=== PATIENT | male | born 1995 | race Caucasian/White ===

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

== ENCOUNTER 2017-01-16 11:08 | Emergency (ER) | payer OTHER ==
[2017-01-16 11:37] VITALS: BP 109/66
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
[2017-01-16] MEDS ORDERED: Silver Sulfadiazine 1% Crm 50 GM Tube TOP STA (11:59)
[2017-01-16] MEDS ORDERED: Silver Sulfadiazine 1% Crm 50 GM Tube TOP SCH (21:00)
== END 2017-01-16 12:39 | disposition home or self-care (01) ==
LOC: MW.ED 11:08
DX: T52.91XA Toxic effect of unspecified organic solvent, accidental (unintentional), initial encounter (principal); T25.622A Corrosion of second degree of left foot, initial encounter; F17.210 Nicotine dependence, cigarettes, uncomplicated
CPT/HCPCS: 16020; 99283; A9270

== ENCOUNTER 2017-02-27 22:20 | Emergency (ER) | payer OTHER ==
--- NOTE | 2017-02-27 23:28 | EDM.PDOC ---
ED HPI GENERAL MEDICAL PROBLEM - General Chief Complaint: Upper Extremity Injury/Pain Stated Complaint: PT HURT LT SHOULDER Time Seen by Provider: 02/27/17 23:18 - History of Present Illness INITIAL COMMENTS - FREE TEXT/NARRATIVE: HISTORY AND PHYSICAL: History of present illness: The patient is a 21-year-old male who presents with complaints of pain at his left clavicle that started this morning when he woke up. Patient says that he was at the gym yesterday on the surfing simulator and fell landing onto his right upper head and shoulder and initially did not pass out or blackout and had no complaints of any pain. He felt fine when he went to sleep and this morning he woke up with discomfort at his proximal left clavicle without any distal left upper extremity pain. Has no chest wall pain no headache neck or back pain and says that there is more pain with movement of the left upper extremity. Patient is not taking anything for the pain and is right-hand dominant. Review of systems: As per history of present illness and below otherwise all systems reviewed and negative. Past medical history: As per history of present illness and as reviewed below otherwise noncontributory. Surgical history: As per history of present illness and as reviewed below otherwise noncontributory. Social history: No reported history of drug or alcohol abuse. Family history: As per history of present illness and as reviewed below otherwise noncontributory. Physical exam: Gen.: Well-developed well-nourished man who is nontoxic and vital signs reviewed by me. HEENT: Atraumatic, normocephalic, negative for conjunctival pallor or scleral icterus, mucous membranes moist, throat clear, neck supple, nontender, trachea midline. There are no midline step-offs tenderness defects of the cervical spine Lungs: Clear to auscultation, breath sounds equal bilaterally, chest nontender. There is no gross rib tenderness on the left Heart: S1S2, regular rate and rhythm no overt murmurs Abdomen: Soft, nondistended, nontender. NABS Pelvis: Deferred Genitourinary: Deferred. Rectal: Deferred. Extremities: Atraumatic with mild tenderness on palpation of the medial clavicle just distal to the sternal margin without any ecchymosis crepitus or erythema and there is some soft tissue swelling at this location as well. The remainder of the clavicle is nontender as is the AC joint. There is no proximal humerus or distal elbow forearm wrist or hand pain on the left. There is no gross tenderness of the chest wall near the left clavicle no defects crepitus or deformities. All other extremities have full range of motion and in fact the left upper extremity is able to range of motion but the patient complains of discomfort. The legs are, negative for cords or calf pain. Neurovascular unremarkable. Neuro: Awake, alert, oriented. Cranial nerves II through XII unremarkable. Cerebellum unremarkable. Motor and sensory unremarkable throughout. Exam nonfocal. Back: There are no midline step-offs in his defects of the thoracic or lumbar spine and no posterior shoulder scapular tenderness is appreciated Diagnostics: 1 view chest x-ray, left clavicle x-ray Therapeutics: The patient refuses medications, sling Impression: Left clavicle injury status post blunt trauma Definitive disposition and diagnosis as appropriate pending reevaluation and review of above. - Related Data Allergies Allergy/AdvReac Type Severity Reaction Status Date / Time No Known Allergies Allergy Verified 02/27/17 23:04 Home Meds: Home Meds . [No Known Home Meds] 02/27/17 [History] Past Medical History - Past Health History Medical/Surgical History: Denies Medical/Surgical History - Infectious Disease History Infectious Disease History: Reports: None Social & Family History - Family History Family Medical History: Noncontributory - Tobacco Use Smoking Status *Q: Never Smoker Years of Tobacco use: 1 Packs/Tins Daily: 1 Second Hand Smoke Exposure: No - Caffeine Use Caffeine Use: Reports: Coffee, Energy Drinks, Soda - Alcohol Use Days Per Week of Alcohol Use: 0 - Recreational Drug Use Recreational Drug Use: No Review of Systems - Review of Systems Review Of Systems: ROS reveals no pertinent complaints other than HPI. ED EXAM, GENERAL - Physical Exam Exam: See Below (See dictation) Course - Vital Signs Last Recorded V/S: Last Vital Signs Temp 36.6 C 02/27/17 23:07 Pulse 98 02/27/17 23:07 Resp 14 02/27/17 23:07 BP 124/60 02/27/17 23:07 Pulse Ox 98 02/27/17 23:07 - Orders/Labs/Meds Orders: Active Orders 24 hr Category Date Time Status Chest 1V Frontal [CR] Stat Exams 02/27/17 23:23 Taken Clavicle Lt [CR] Stat Exams 02/27/17 23:23 Taken DME for Discharge [COMM] Stat Oth 02/28/17 00:03 Ordered Departure - Departure Time of Disposition: 00:03 Disposition: Home, Self-Care 01 Condition: Good Clinical Impression: Injury of left clavicle Qualifiers: Encounter type: initial encounter Qualified Code(s): S49.92XA - Unspecified injury of left shoulder and upper arm, initial encounter - Discharge Information Referrals: PCP,None [Primary Care Provider] - Forms: ED Department Discharge Additional Instructions: The following information is given to patients seen in the emergency department who are being discharged to home. This information is to outline your options for follow-up care. We provide all patients seen in our emergency department with a follow-up referral. The need for follow-up, as well as the timing and circumstances, are variable depending upon the specifics of your emergency department visit. If you don't have a primary care physician on staff, we will provide you with a referral. We always advise you to contact your personal physician following an emergency department visit to inform them of the circumstance of the visit and for follow-up with them and/or the need for any referrals to a consulting specialist. The emergency department will also refer you to a specialist when appropriate. This referral assures that you have the opportunity for followup care with a specialist. All of these measure are taken in an effort to provide you with optimal care, which includes your followup. Under all circumstances we always encourage you to contact your private physician who remains a resource for coordinating your care. When calling for followup care, please make the office aware that this follow-up is from your recent emergency room visit. If for any reason you are refused follow-up, please contact the [facility] emergency department at and ask to speak to the emergency department charge nurse. [facility] Specialty Care--Orthopedic clinic Professional Building [address] [place] [id number] Ice to area for pain and swelling and use [id number] Tylenol/ibuprofen for inflammation and discomfort. Wear sling as needed for comfort but also starting tomorrow try to range of motion the area slowly to help open up the muscles. Please call our ortho clinic for further care and evaluation and return to ER as needed and as discussed. - My Orders Last 24 Hours: My Active Orders 02/27/17 23:23 Chest 1V Frontal [CR] Stat Clavicle Lt [CR] Stat 02/28/17 00:03 DME for Discharge [COMM] Stat - Assessment/Plan Last 24 Hours: My Active Orders 02/27/17 23:23 Chest 1V Frontal [CR] Stat Clavicle Lt [CR] Stat 02/28/17 00:03 DME for Discharge [COMM] Stat
[2017-02-28 02:48] VITALS: BP 121/63
--- NOTE | 2017-02-28 09:17 | CR ---
EXAM DATE: 02/27/17 PATIENT'S AGE: 21 Patient: CYRUS GLORIA Facility: [place], [place] Site . Site : 1995 Study: XRay Chest [id number]/8/2018 11:43:29 PM Ordering Physician: Izzy Mcmullen Final Report: INDICATION: FELL ONTO LEFT SHOULDER YESTERDAY, PAIN. CHEST, ONE VIEW An AP radiograph of the chest was performed. Comparison: No previous studies are currently available for comparison. The lungs appear clear and no pleural effusions are identified. The cardiomediastinal silhouette and pulmonary vasculature appear normal, as do the visualized bones. IMPRESSION: No acute intrathoracic abnormality identified. SAVANNAH GAITAN MD [employer] Dictated by: Javier Gaitan MD @ 02/27/2017 23:46:01 (Electronic Signature) Report Signed by Proxy. [facility]ITAL[facility]
--- NOTE | 2017-02-28 09:18 | CR ---
EXAM DATE: 02/27/17 PATIENT'S AGE: 21 Patient: CYRUS GLORIA Facility: [place], [place] Site . Site : 1995 Study: XRay Extremity Left CLAVICLE [id number]/8/2018 11:43:57 PM Ordering Physician: Izzy Mcmullen Final Report: INDICATION: PAIN, PT FELL ONTO LEFT SHOULDER YESTERDAY LEFT CLAVICLE No fracture, dislocation, or destructive lesion of bone is seen. No significant arthritic changes or soft tissue abnormalities are identified. IMPRESSION: Negative left clavicle radiographs. SVAANNAH GAITAN MD [employer] Dictated by: Javier Gaitan MD @ 02/27/2017 23:45:31 (Electronic Signature) Report Signed by Proxy. [facility]
== END 2017-02-28 00:10 | disposition home or self-care (01) ==
LOC: MW.ED 22:20
DX: S49.92XA Unspecified injury of left shoulder and upper arm, initial encounter (principal); W19.XXXA Unspecified fall, initial encounter
CPT/HCPCS: 71045; 71045-26; 73000-26-LT; 73000-LT; 99283; 99284

== ENCOUNTER 2017-04-28 18:37 | Emergency (ER) | payer OTHER ==
[2017-04-28 18:49] VITALS: BP 129/68
--- NOTE | 2017-04-28 19:23 | EDM.PDOC ---
ED HPI GENERAL MEDICAL PROBLEM - General Chief Complaint: Neuro Symptoms/Deficits Stated Complaint: SEIZURES Time Seen by Provider: 04/28/17 19:11 - History of Present Illness INITIAL COMMENTS - FREE TEXT/NARRATIVE: HISTORY AND PHYSICAL: History of present illness: The patient is a 22-year-old male who presents for evaluation of seizures; the patient states that he has had seizures since she was 15 years of age and the usually occur about once a month right before he goes to sleep at nighttime. He states that he has never seen a neurologist or any specialist for this and he has never been on any medication. He says he has never had any testing such as an EEG for this. He presents today to the ED for evaluation because over the last 2 weeks he has been having one every single night right before he goes to sleep. He denies drug use and only drinks socially. He denies any recent trauma to his head and during these events he is usually in bed and has no trauma with it. He does not have loss of bowel or bladder and there witnessed by his girlfriend and he is here tonight because last evening his seizure lasted longer than usual and the girlfriend thought it was 20 minutes. The patient has not had any events this evening and states that he does not have any abnormal motor activity or "seizures" during the day. There is no specific trigger for it. In the past he has always had them with a similar presentation always right before sleep time. He currently denies any systemic complaints such as fever chest pain shortness of breath headache nausea or vomiting has been eating drinking normally. He does say that he gets headaches frequently but they are not associated to the headaches specifically and he does not get headaches every single day. He has never seen a doctor for evaluation of headaches either. The headaches are vague and diffuse and not in any one specific location. The patient denies any complaints of pain as a result of these "seizures" such as muscle pain extremity pain head neck or back pain. The patient states he has not been biting his tongue but he bite his inner lip several days ago and there is no pain there. Review of systems: As per history of present illness and below otherwise all systems reviewed and negative. Past medical history: As per history of present illness and as reviewed below otherwise noncontributory. Surgical history: As per history of present illness and as reviewed below otherwise noncontributory. Social history: No reported history of drug or alcohol abuse. Family history: As per history of present illness and as reviewed below otherwise noncontributory. Physical exam: General: Well-developed well-nourished male who is nontoxic and vital signs reviewed by me. HEENT: Atraumatic, normocephalic, pupils reactive, negative for conjunctival pallor or scleral icterus, mucous membranes moist, throat clear, neck supple, nontender, trachea midline. There is no cervical adenopathy or nuchal rigidity no evidence of any soft tissue injuries to the scalp or head. There is no evidence of any tongue or oral trauma seen. Lungs: Clear to auscultation, breath sounds equal bilaterally, chest nontender. Heart: S1S2, regular rate and rhythm no overt murmurs Abdomen: Soft, nondistended, nontender. NABS Pelvis: Stable nontender. Genitourinary: Deferred. Rectal: Deferred. Extremities: Atraumatic, negative for cords or calf pain. Neurovascular unremarkable. Full range of motion without any defects or deficits Neuro: Awake, alert, oriented. Cranial nerves II through XII unremarkable. Cerebellum unremarkable. Motor and sensory unremarkable throughout. Exam nonfocal. Diagnostics: CBC CMP alcohol level UA UDS CT scan of the head Therapeutics: I discussed with the patient at length that we will be limited in evaluation of seizures here and as he did not have a seizure since last evening it would even make it more challenging. I told him that we would do a basic workup and I would refer him to our neurologist for further care and evaluation he states understanding. Impression: Medical screening exam with history of seizures stable, persistent seizures without medical care plan Definitive disposition and diagnosis as appropriate pending reevaluation and review of above. - Related Data Allergies Allergy/AdvReac Type Severity Reaction Status Date / Time No Known Allergies Allergy Verified 04/28/17 18:48 Home Meds: Home Meds . [No Known Home Meds] 02/27/17 [History] Past Medical History - Past Health History Medical/Surgical History: Denies Medical/Surgical History Neurological History: Reports: Seizure - Infectious Disease History Infectious Disease History: Reports: None Other Infectious Disease History: clamydia (treated) - Past Surgical History HEENT Surgical History: Reports: Oral Surgery Social & Family History - Family History Family Medical History: Noncontributory - Tobacco Use Smoking Status *Q: Current Every Day Smoker Years of Tobacco use: 2 Packs/Tins Daily: 1 Second Hand Smoke Exposure: No - Caffeine Use Caffeine Use: Reports: Coffee, Soda - Alcohol Use Days Per Week of Alcohol Use: 0 - Recreational Drug Use Recreational Drug Use: No ED ROS GENERAL - Review of Systems Review Of Systems: ROS reveals no pertinent complaints other than HPI. ED EXAM, GENERAL - Physical Exam Exam: See Below (see dictation) Course - Vital Signs Last Recorded V/S: Last Vital Signs Temp 36.4 C 04/28/17 18:45 Pulse 82 04/28/17 18:45 Resp 18 04/28/17 18:45 BP 129/68 04/28/17 18:45 Pulse Ox 97 04/28/17 18:45 - Orders/Labs/Meds Orders: Active Orders 24 hr Category Date Time Status Head wo Cont [CT] Stat Exams 04/28/17 19:18 Taken Labs: Laboratory Tests 04/28/17 04/28/17 04/28/17 Range/Units 19:37 19:37 19:45 WBC 7.04 (4.0-11.0) K/uL RBC 4.80 (4.50-5.90) M/uL Hgb 14.5 (13.0-17.0) g/dL Hct 41.5 (38.0-50.0) % MCV 86.5 (80.0-98.0) fL MCH 30.2 (27.0-32.0) pg MCHC 34.9 (31.0-37.0) g/dL RDW Std Deviation 39.4 (28.0-62.0) fl RDW Coeff of Sunday 12 (11.0-15.0) % Plt Count 234 (150-400) K/uL MPV 9.50 (7.40-12.00) fL Neut % (Auto) 53.5 (48.0-80.0) % Lymph % (Auto) 36.6 (16.0-40.0) % Esmeralda % (Auto) 6.8 (0.0-15.0) % Eos % (Auto) 2.7 (0.0-7.0) % Baso % (Auto) 0.4 (0.0-1.5) % Neut # (Auto) 3.8 (1.4-5.7) K/uL Lymph # (Auto) 2.6 H (0.6-2.4) K/uL Esmeralda # (Auto) 0.5 (0.0-0.8) K/uL Eos # (Auto) 0.2 (0.0-0.7) K/uL Baso # (Auto) 0.0 (0.0-0.1) K/uL Nucleated RBC % 0.0 /100WBC Nucleated RBCs # 0 K/uL Sodium 143 (136-148) mmol/L Potassium 4.1 (3.5-5.1) mmol/L Chloride 108 H (98-107) mmol/L Carbon Dioxide 24.8 (21.0-32.0) mmol/L BUN 12 (7.0-18.0) mg/dL Creatinine 0.9 (0.8-1.3) mg/dL Est Cr Clr Drug Dosing 126.67 mL/min Estimated GFR (MDRD) > 60.0 ml/min Glucose 90 (74-106) mg/dL Calcium 9.3 (8.5-10.1) mg/dL Total Bilirubin 0.2 (0.2-1.0) mg/dL AST 31 (15-37) IU/L ALT 55 (14-63) IU/L Alkaline Phosphatase 68 (46-116) U/L Total Protein 7.4 (6.4-8.2) g/dL Albumin 4.3 (3.4-5.0) g/dL Globulin 3.1 (2.0-3.5) g/dL Albumin/Globulin Ratio 1.4 (1.3-2.8) Urine Color YELLOW Urine Appearance SLT CLOUDY Urine pH 6.5 (5.0-8.0) Ur Specific [place] 1.025 (1.001-1.035) Urine Protein NEGATIVE (NEGATIVE) mg/dL Urine Glucose (UA) NEGATIVE (NEGATIVE) mg/dL Urine Ketones NEGATIVE (NEGATIVE) mg/dL Urine Occult Blood NEGATIVE (NEGATIVE) Urine Nitrite NEGATIVE (NEGATIVE) Urine Bilirubin NEGATIVE (NEGATIVE) Urine Urobilinogen 0.2 (<2.0) EU/dL Ur Leukocyte Esterase NEGATIVE (NEGATIVE) Urine RBC 0-1 (0-2/HPF) Urine WBC 0-2 (0-5/HPF) Ur Epithelial Cells RARE (NONE-FEW) Amorphous Sediment MANY (NEGATIVE) Urine Bacteria FEW (NEGATIVE) Urine Opiates Screen (NEGATIVE) Ur Oxycodone Screen (NEGATIVE) Urine Methadone Screen (NEGATIVE) Ur Barbiturates Screen (NEGATIVE) Ur Phencyclidine Scrn (NEGATIVE) Ur Amphetamine Screen (NEGATIVE) U Methamphetamines Scrn (NEGATIVE) U Benzodiazepines Scrn (NEGATIVE) U Cocaine Metab Screen (NEGATIVE) U Marijuana (THC) Screen (NEGATIVE) Ethyl Alcohol <3 mg/dL 04/28/17 Range/Units 19:45 WBC (4.0-11.0) K/uL RBC (4.50-5.90) M/uL Hgb (13.0-17.0) g/dL Hct (38.0-50.0) % MCV (80.0-98.0) fL MCH (27.0-32.0) pg MCHC (31.0-37.0) g/dL RDW Std Deviation (28.0-62.0) fl RDW Coeff of Sunday (11.0-15.0) % Plt Count (150-400) K/uL MPV (7.40-12.00) fL Neut % (Auto) (48.0-80.0) % Lymph % (Auto) (16.0-40.0) % Esmeralda % (Auto) (0.0-15.0) % Eos % (Auto) (0.0-7.0) % Baso % (Auto) (0.0-1.5) % Neut # (Auto) (1.4-5.7) K/uL Lymph # (Auto) (0.6-2.4) K/uL Esmeralda # (Auto) (0.0-0.8) K/uL Eos # (Auto) (0.0-0.7) K/uL Baso # (Auto) (0.0-0.1) K/uL Nucleated RBC % /100WBC Nucleated RBCs # K/uL Sodium (136-148) mmol/L Potassium (3.5-5.1) mmol/L Chloride (98-107) mmol/L Carbon Dioxide (21.0-32.0) mmol/L BUN (7.0-18.0) mg/dL Creatinine (0.8-1.3) mg/dL Est Cr Clr Drug Dosing mL/min Estimated GFR (MDRD) ml/min Glucose (74-106) mg/dL Calcium (8.5-10.1) mg/dL Total Bilirubin (0.2-1.0) mg/dL AST (15-37) IU/L ALT (14-63) IU/L Alkaline Phosphatase (46-116) U/L Total Protein (6.4-8.2) g/dL Albumin (3.4-5.0) g/dL Globulin (2.0-3.5) g/dL Albumin/Globulin Ratio (1.3-2.8) Urine Color Urine Appearance Urine pH (5.0-8.0) Ur Specific [place] (1.001-1.035) Urine Protein (NEGATIVE) mg/dL Urine Glucose (UA) (NEGATIVE) mg/dL Urine Ketones (NEGATIVE) mg/dL Urine Occult Blood (NEGATIVE) Urine Nitrite (NEGATIVE) Urine Bilirubin (NEGATIVE) Urine Urobilinogen (<2.0) EU/dL Ur Leukocyte Esterase (NEGATIVE) Urine RBC (0-2/HPF) Urine WBC (0-5/HPF) Ur Epithelial Cells (NONE-FEW) Amorphous Sediment (NEGATIVE) Urine Bacteria (NEGATIVE) Urine Opiates Screen NEGATIVE (NEGATIVE) Ur Oxycodone Screen NEGATIVE (NEGATIVE) Urine Methadone Screen NEGATIVE (NEGATIVE) Ur Barbiturates Screen NEGATIVE (NEGATIVE) Ur Phencyclidine Scrn NEGATIVE (NEGATIVE) Ur Amphetamine Screen NEGATIVE (NEGATIVE) U Methamphetamines Scrn NEGATIVE (NEGATIVE) U Benzodiazepines Scrn NEGATIVE (NEGATIVE) U Cocaine Metab Screen NEGATIVE (NEGATIVE) U Marijuana (THC) Screen NEGATIVE (NEGATIVE) Ethyl Alcohol mg/dL Departure - Departure Time of Disposition: 20:32 Disposition: Home, Self-Care 01 Condition: Good Clinical Impression: Encounter for medical screening examination, History of seizures - Discharge Information Referrals: PCP,None [Primary Care Provider] - Forms: ED Department Discharge Additional Instructions: The following information is given to patients seen in the emergency department who are being discharged to home. This information is to outline your options for follow-up care. We provide all patients seen in our emergency department with a follow-up referral. The need for follow-up, as well as the timing and circumstances, are variable depending upon the specifics of your emergency department visit. If you don't have a primary care physician on staff, we will provide you with a referral. We always advise you to contact your personal physician following an emergency department visit to inform them of the circumstance of the visit and for follow-up with them and/or the need for any referrals to a consulting specialist. The emergency department will also refer you to a specialist when appropriate. This referral assures that you have the opportunity for followup care with a specialist. All of these measure are taken in an effort to provide you with optimal care, which includes your followup. Under all circumstances we always encourage you to contact your private physician who remains a resource for coordinating your care. When calling for followup care, please make the office aware that this follow-up is from your recent emergency room visit. If for any reason you are refused follow-up, please contact the [facility] emergency department at and ask to speak to the emergency department charge nurse. [facility] Primary care- Internal Medicine and [place] [id number] [place] [address] [facility] Specialty care-Neurology Professional Building [address] [place] [address], [address] [place] [address] Please contact our clinic to schedule a follow-up appointment with a primary care physician as well as our neurologist Dr. Moffett. Please start a journal your symptoms in the evenings and with these episodes that you're having to help the provider in the clinic to determine what the next steps will be. Return to ER as needed and as discussed. - My Orders Last 24 Hours: My Active Orders 04/28/17 19:18 Head wo Cont [CT] Stat - Assessment/Plan Last 24 Hours: My Active Orders 04/28/17 19:18 Head wo Cont [CT] Stat
[2017-04-28 20:14] LABS: CHLORIDE,CL 108 mmol/L (98-107); SODIUM,NA 143 mmol/L (136-148)
--- NOTE | 2017-05-01 10:41 | CT ---
EXAM DATE: 04/28/17 PATIENT'S AGE: 22 Patient: CYRUS GLORIA Facility: [place], [place] Site . Site : 1995 Study: CT Head [id number]/2018 7:40:44 PM Ordering Physician: Izzy Mcmullen Final Report: INDICATION: Hx of seizures when younger, recent complaint of seizures. TECHNIQUE: Multiple axial images were obtained through the brain without contrast. Sagittal and coronal re-formatted images were obtained. COMPARISON: None. FINDINGS: The ventricles and sulci are within normal limits. There is no mass effect or midline shift. There is no intracranial hemorrhage. The alvarez-white matter differentiation is unremarkable. There is no fracture identified on bone windows. IMPRESSION: No acute intracranial abnormality. Dictated by Camilo Lockhart MD @ 04/28/2017 7:54:08 PM Dictated by: Camilo Lockhart MD @ 04/28/2017 19:54:27 (Electronic Signature) Report Signed by Proxy. [facility]
== END 2017-04-28 20:57 | disposition home or self-care (01) ==
LOC: MW.ED 18:37
DX: R56.9 Unspecified convulsions (principal); F17.210 Nicotine dependence, cigarettes, uncomplicated
CPT/HCPCS: 36415; 70450; 80053; 80305; 81001; 85025; 99284; G0480; 99283

== ENCOUNTER 2018-07-08 22:34 | Emergency (ER) | payer SELFPAY ==
[2018-07-08] MEDS ORDERED: Lidocaine 1% with EPINEPHrine 1:100,000 10 ML MDV INJECT ONE (22:43)
--- NOTE | 2018-07-08 22:43 | EDM.PDOC ---
ED HPI GENERAL MEDICAL PROBLEM - General Stated Complaint: HEAD INJURY Time Seen by Provider: 07/08/18 22:42 Source of Information: Reports: Patient - History of Present Illness INITIAL COMMENTS - FREE TEXT/NARRATIVE: HISTORY AND PHYSICAL: History of present illness: [Patient was at a graduation green party in [place] he was playing "knocker ball, he in an opponent struck forehands no loss of consciousness both developed lacerations as patient's is 2.5 cm linear simple laceration laceration as above right eye at the hairline Review of systems: As per history of present illness and below otherwise all systems reviewed and negative. Past medical history: As per history of present illness and as reviewed below otherwise noncontributory. Surgical history: As per history of present illness and as reviewed below otherwise noncontributory. Social history: No reported history of drug or alcohol abuse. Family history: As per history of present illness and as reviewed below otherwise noncontributory. Physical exam: HEENT: Atraumatic, normocephalic, pupils reactive, negative for conjunctival pallor or scleral icterus, mucous membranes moist, throat clear, neck supple, nontender, trachea midline. Lungs: Clear to auscultation, breath sounds equal bilaterally, chest nontender. Heart: S1S2, regular, negative for clicks, rubs, or JVD. Abdomen: Soft, nondistended, nontender. Negative for masses or hepatosplenomegaly. Negative for costovertebral tenderness. Pelvis: Stable nontender. Genitourinary: Deferred. Rectal: Deferred. Extremities: Atraumatic, negative for cords or calf pain. Neurovascular unremarkable. Neuro: Awake, alert, oriented. Cranial nerves II through XII unremarkable. Cerebellum unremarkable. Motor and sensory unremarkable throughout. Exam nonfocal. Skin as per history of present illness Diagnostics: [ clinical ] Therapeutics: [ lidocaine with epi 2 mL Wound cleansed and explored ] #2 4-0 Prolene sutures interrupted my excellent wound approximation Sutures out in 5 days Impression: [ laceration 2.5 cm simple, linear ] Definitive disposition and diagnosis as appropriate pending reevaluation and review of above. Headache Pain Score (Numeric/FACES): 5 - Related Data Allergies Allergy/AdvReac Type Severity Reaction Status Date / Time No Known Allergies Allergy Verified 07/08/18 22:56 Home Meds: Home Meds . [No Known Home Meds] 02/27/17 [History] Past Medical History - Past Health History Medical/Surgical History: Denies Medical/Surgical History Neurological History: Reports: Seizure - Infectious Disease History Infectious Disease History: Reports: None Other Infectious Disease History: clamydia (treated) - Past Surgical History HEENT Surgical History: Reports: Oral Surgery Social & Family History - Family History Family Medical History: Noncontributory - Caffeine Use Caffeine Use: Reports: Coffee, Soda ED ROS GENERAL - Review of Systems Review Of Systems: See Below ED EXAM, GENERAL - Physical Exam Exam: See Below Course - Vital Signs Last Recorded V/S: Last Vital Signs Temp 97.6 F 07/08/18 22:52 Pulse 78 07/08/18 22:52 Resp 18 07/08/18 22:52 BP 121/64 07/08/18 22:52 Pulse Ox 97 07/08/18 22:52 - Orders/Labs/Meds Meds: Medications Discontinued Medications Generic Name Dose Route Start Last Admin Trade Name Garcia PRN Reason Stop Dose Admin Lidocaine/Epinephrine 5 ml 07/08/18 22:43 07/08/18 23:16 Xylocaine 1% With Epinephrine 1:100,000 INJECT 07/08/18 22:44 Not Given ONETIME ONE Lidocaine/Epinephrine Confirm 07/08/18 22:53 07/08/18 23:16 Xylocaine 1% With Epinephrine 1:100,000 Administered 07/08/18 22:54 Not Given Dose 20 ml .ROUTE .STK-MED ONE Lidocaine/Epinephrine 20 ml 07/08/18 23:02 07/08/18 23:16 Xylocaine 1% With Epinephrine 1:100,000 INJECT 07/08/18 23:03 20 ml ONETIME ONE Administration Departure - Departure Time of Disposition: 23:21 Disposition: Home, Self-Care 01 Condition: Good Clinical Impression: Laceration - Discharge Information Referrals: PCP,None [Primary Care Provider] - Additional Instructions: Standard wound care instructions Standard head injury instruction Return if symptoms persist or worsen Sutures out in 5 days The following information is given to patients seen in the emergency department who are being discharged to home. This information is to outline your options for follow-up care. We provide all patients seen in our emergency department with a follow-up referral. The need for follow-up, as well as the timing and circumstances, are variable depending upon the specifics of your emergency department visit. If you don't have a primary care physician on staff, we will provide you with a referral. We always advise you to contact your personal physician following an emergency department visit to inform them of the circumstance of the visit and for follow-up with them and/or the need for any referrals to a consulting specialist. The emergency department will also refer you to a specialist when appropriate. This referral assures that you have the opportunity for follow-up care with a specialist. All of these measure are taken in an effort to provide you with optimal care, which includes your follow-up. Under all circumstances we always encourage you to contact your private physician who remains a resource for coordinating your care. When calling for follow-up care, please make the office aware that this follow-up is from your recent emergency room visit. If for any reason you are refused follow-up, please contact the [facility] emergency department at and asked to speak to the emergency department charge nurse.
[2018-07-08] MEDS ORDERED: Lidocaine 1% with EPINEPHrine 1:100,000 20 ML MDV ONE (22:53)
[2018-07-08] MEDS ORDERED: Lidocaine 1% with EPINEPHrine 1:100,000 20 ML MDV INJECT ONE (23:02)
[2018-07-08] MEDS ORDERED: Diphtheria,Pertussis(Acell),Tetanus Vaccine 0.5 ML Syringe IM ONE (23:23)
[2018-07-08 23:39] VITALS: BP 102/51
== END 2018-07-08 23:35 | disposition home or self-care (01) ==
LOC: MW.ED 22:34
DX: S01.81XA Laceration without foreign body of other part of head, initial encounter (principal); Z98.890 Other specified postprocedural states; W51.XXXA Accidental striking against or bumped into by another person, initial encounter; Y93.6A Activity, physical games generally associated with school recess, summer camp and children
CPT/HCPCS: 12011; 99282

== ENCOUNTER 2018-09-22 19:34 | Emergency (ER) | payer BC, OTHER ==
--- NOTE | 2018-09-22 19:47 | EDM.PDOC ---
ED HPI GENERAL MEDICAL PROBLEM - General Chief Complaint: Upper Extremity Injury/Pain Stated Complaint: PT HURT RT HAND Time Seen by Provider: 09/22/18 19:44 - History of Present Illness INITIAL COMMENTS - FREE TEXT/NARRATIVE: HISTORY AND PHYSICAL: History of present illness: Patient's 23-year-old white male presents with a concern of right hand injuring this occurred when he struck a wall yesterday he has pain over the dorsal lateral aspect of his right hand. There is no other trauma or concern Review of systems: As per history of present illness and below otherwise all systems reviewed and negative. Past medical history: As per history of present illness and as reviewed below otherwise noncontributory. Surgical history: As per history of present illness and as reviewed below otherwise noncontributory. Social history: No reported history of drug or alcohol abuse. Family history: As per history of present illness and as reviewed below otherwise noncontributory. Physical exam: HEENT: Atraumatic, normocephalic, pupils reactive, negative for conjunctival pallor or scleral icterus, mucous membranes moist, throat clear, neck supple, nontender, trachea midline. Lungs: Clear to auscultation, breath sounds equal bilaterally, chest nontender. Heart: S1S2, regular, negative for clicks, rubs, or JVD. Abdomen: Soft, nondistended, nontender. Negative for masses or hepatosplenomegaly. Negative for costovertebral tenderness. Pelvis: Stable nontender. Genitourinary: Deferred. Rectal: Deferred. Extremities: Patient has pain and swelling over the fifth metacarpal his right hand no gross deformity CMS neurovascular exams unremarkable Neuro: Awake, alert, oriented. Cranial nerves II through XII unremarkable. Cerebellum unremarkable. Motor and sensory unremarkable throughout. Exam nonfocal. Diagnostics: X-ray right hand Therapeutics: Ulnar gutter splint sling Impression: #1 acute right hand injury (boxer's fracture) Definitive disposition and diagnosis as appropriate pending reevaluation and review of above. right hand Pain Score (Numeric/FACES): 8 - Related Data Allergies Allergy/AdvReac Type Severity Reaction Status Date / Time No Known Allergies Allergy Verified 09/22/18 19:51 Home Meds: Home Meds . [No Known Home Meds] 02/27/17 [History] Past Medical History - Past Health History Medical/Surgical History: Denies Medical/Surgical History Neurological History: Reports: Seizure - Infectious Disease History Infectious Disease History: Reports: None Other Infectious Disease History: clamydia (treated) - Past Surgical History HEENT Surgical History: Reports: Oral Surgery Social & Family History - Family History Family Medical History: Noncontributory - Caffeine Use Caffeine Use: Reports: Coffee, Soda Review of Systems - Review of Systems Review Of Systems: ROS reveals no pertinent complaints other than HPI. ED EXAM, GENERAL - Physical Exam Exam: See Below (See dictation) Course - Vital Signs Last Recorded V/S: Last Vital Signs Temp 36.3 C 09/22/18 19:40 Pulse 84 09/22/18 19:40 Resp 18 09/22/18 19:40 BP 113/40 L 09/22/18 19:40 Pulse Ox 96 09/22/18 19:40 - Orders/Labs/Meds Orders: Active Orders 24 hr Category Date Time Status Hand Comp Min 3V Rt [CR] Stat Exams 09/22/18 19:45 Ordered Departure - Departure Time of Disposition: 20:04 Disposition: Home, Self-Care 01 Condition: Good Clinical Impression: Boxers fracture - Discharge Information Forms: ED Department Discharge Additional Instructions: The following information is given to patients seen in the emergency department who are being discharged to home. This information is to outline your options for follow-up care. We provide all patients seen in our emergency department with a follow-up referral. The need for follow-up, as well as the timing and circumstances, are variable depending upon the specifics of your emergency department visit. If you don't have a primary care physician on staff, we will provide you with a referral. We always advise you to contact your personal physician following an emergency department visit to inform them of the circumstance of the visit and for follow-up with them and/or the need for any referrals to a consulting specialist. The emergency department will also refer you to a specialist when appropriate. This referral assures that you have the opportunity for followup care with a specialist. All of these measure are taken in an effort to provide you with optimal care, which includes your followup. Under all circumstances we always encourage you to contact your private physician who remains a resource for coordinating your care. When calling for followup care, please make the office aware that this follow-up is from your recent emergency room visit. If for any reason you are refused follow-up, please contact the [facility] emergency department at and asked to speak to the emergency department charge nurse. [facility] [address], [address] [place] [address] Splint sling as directed Motrins this time as directed follow-up orthopedic surgery above: Schedule appointment return as needed as discussed - My Orders Last 24 Hours: My Active Orders 09/22/18 19:45 Hand Comp Min 3V Rt [CR] Stat - Assessment/Plan Last 24 Hours: My Active Orders 09/22/18 19:45 Hand Comp Min 3V Rt [CR] Stat
[2018-09-22 20:12] VITALS: PULSE 84
--- NOTE | 2018-09-22 20:17 | CR ---
Indication: Trauma Technique: Three views right hand Comparison: None Findings/impression: Bones: Minimally displaced transverse fracture through the distal shaft of the right 5th metacarpal with dorsal apex angulation. Mild overlying soft tissue swelling. Remainder of the osseous structures are intact. Dictated by Serenity Steele MD @ Sep 22 2018 8:16PM Signed by Dr. Serenity Steele @ Sep 22 2018 8:16PM
[2018-09-22 21:05] VITALS: BP 116/60
== END 2018-09-22 21:03 | disposition home or self-care (01) ==
LOC: MW.ED 19:34
DX: S62.326A Displaced fracture of shaft of fifth metacarpal bone, right hand, initial encounter for closed fracture (principal); W22.8XXA Striking against or struck by other objects, initial encounter
CPT/HCPCS: 29125; 73130-26-RT; 73130-RT; 99283; 99283-25

== ENCOUNTER 2023-03-06 11:39 | Emergency (ER) | payer SELFPAY ==
[2023-03-06] MEDS ORDERED: Ibuprofen 600 MG Tab PO ONE (12:32)
[2023-03-06] MEDS ORDERED: Alum Hydro/Mag Hydro/Simeth XS 15 ML, Lidocaine 2% 5 ML PO ONE ×2 (12:32)
[2023-03-06] MEDS ORDERED: Acetaminophen 500 MG Tab PO ONE (12:32)
[2023-03-06 12:42] LABS: BASOPHILS ABSOLUTE AUTO 0.04 K/uL (0.00-0.20); BASOPHILS PERCENT AUTO 0.5 % (0.0-1.0); EOSINOPHILS ABSOLUTE AUTO 0.16 K/uL (0.00-0.45); EOSINOPHILS PERCENT AUTO 2.1 % (0.0-6.0); HEMATOCRIT 43.3 % (42.0-52.0); HEMOGLOBIN 15.4 g/dL (14.0-18.0); IMMATURE GRAN ABSOLUTE AUTO 0.02 K/uL (0.00-0.05); IMMATURE GRAN PERCENT AUTO 0.3 % (0.0-0.4); LYMPHOCYTES ABSOLUTE AUTO 2.03 K/uL (1.00-4.80); LYMPHOCYTES PERCENT AUTO 26.3 % (24.0-44.0); MEAN CORPUSCULAR HEMOGLOBIN 31.8 pg (28.0-32.0); MEAN CORPUSCULAR HGB CONC 35.6 g/dL (32.0-36.0); MEAN CORPUSCULAR VOLUME 89.5 fL (83.0-99.0); MEAN PLATELET VOLUME 9.4 fL (9.4-12.4); MONOCYTES ABSOLUTE AUTO 0.46 K/uL (0.00-0.80); NEUTROPHILS ABSOLUTE AUTO 5.02 K/uL (1.80-7.70); NEUTROPHILS PERCENT AUTO 64.8 % (41.0-71.0); PLATELET COUNT,PLT 200 K/uL (150-400); RED BLOOD CELL COUNT 4.84 M/uL (4.52-5.90); WHITE BLOOD CELL COUNT,WBC 7.73 K/uL (3.9-11.3)
[2023-03-06 13:10] LABS: A/G RATIO 1.3 (0.9-1.6); ALBUMIN 3.9 g/dL (3.4-5.0); BILIRUBIN TOTAL 0.4 mg/dL (0.2-1.0); CALCIUM 8.9 mg/dL (8.5-10.1); CARBON DIOXIDE,CO2 26.3 mmol/L (21.0-32.0); EST CRCL DRUG DOSING (CG) 101.9 mL/min
[2023-03-06 13:35] LABS: CORONAVIRUS COVID-19 NAA NEGATIVE (NEGATIVE); INFLUENZA A NAA NEGATIVE (NEGATIVE); INFLUENZA B NAA NEGATIVE (NEGATIVE); RESPIRATORY SYNCYTIAL VIR NAA NEGATIVE (NEGATIVE)
[2023-03-06 13:48] VITALS: BP 133/64; PULSE 74
== END 2023-03-06 13:55 | disposition home or self-care (01) ==
LOC: MW.ED 11:39
DX: K21.9 Gastro-esophageal reflux disease without esophagitis (principal); Z20.822 Contact with and (suspected) exposure to COVID-19
CPT/HCPCS: 0241U; 36415; 71045; 80053; 84484; 85025; 93005; 99285; A9270; 93010; 99283